=== PATIENT | female | born 1985 | race Asian ===

== ENCOUNTER 2021-11-22 10:55 | Emergency (ER) | payer BC ==
[~2021-11-22] VITALS: Ht 162.6 cm; Wt 68.0 kg
[2021-11-22 11:07] VITALS: BP 130/99
[2021-11-22] MEDS ORDERED: LIDO1ADH82 TP (11:37)
--- NOTE | 2021-11-22 11:40 | NUR ---
Patient discharged to home in stable condition. Written and verbal after care instructions given. Patient verbalizes understanding of instruction.
== END 2021-11-22 11:41 | disposition home or self-care (01) ==
LOC: ER 10:57
DX: S06.0X0A Concussion without loss of consciousness, initial encounter (principal); S13.4XXA Sprain of ligaments of cervical spine, initial encounter; Z88.6 Allergy status to analgesic agent; W22.8XXA Striking against or struck by other objects, initial encounter; Y93.89 Activity, other specified; Y92.89 Other specified places as the place of occurrence of the external cause; Y99.8 Other external cause status